=== PATIENT | female | born 1960 | race Caucasian/White ===

== ENCOUNTER 2018-04-19 14:53 | Emergency (ER) | payer SELFPAY ==
--- NOTE | 2018-04-19 15:17 | ED Physician Documentation ---
General Adult - HISTORIAN Historian: patient - HPI Stated Complaint: Shortness of Breath Chief Complaint: Dyspnea Onset: days ago (1) Timing: still present Severity: mild Further Comments: yes (She reports she sees pulmonology and she has a civil engineering assistant - she is not sure of their names. She states over the last day or so she has had increasing shortness of breath. No fever. no increased cough, no exposures to sick. She has tried her neb at home with minimal relief. She does not use a daily steroid inhaler. No rash) - ROS CONST: no problems - PAST HX Past History: COPD, hypertension Immunizations: UTD Allergies/Adverse Reactions: Allergies Allergy/AdvReac Type Severity Reaction Status Date / Time morphine AdvReac Intermediate Nausea/Vomi Verified 04/19/18 15:17 ting Home Medications: Ambulatory Orders Medication Instructions Recorded Ipratropium/Albuterol Sulfate 3 ml NEB Q4 07/25/16 [Duoneb] - SOCIAL HX Smoking History: cigarettes Alcohol Use: none Drug Use: none - FAMILY HX Family History: No - VITAL SIGNS Vital Signs: Vital Signs Temp Pulse Resp BP Pulse Ox 98.1 F 89 28 H 100/66 88 L 04/19/18 14:55 04/19/18 14:55 04/19/18 14:55 04/19/18 14:55 04/19/18 14:55 - REVIEWED ASSESSMENTS Nursing Assessment Reviewed: Yes Vitals Reviewed: Yes Progress - Progress Progress: 1600: she reports she is still "a little" short on air. She does report she is feeling better. DG 1650: She reports she would rather have an oral steroid not IV. She states the duoneb makes her feel far more less short of breath. DG ED Results Lab/Radiology - Radiology Radiology Impressions: Dairy Worker to anterior and lateral chest Clinical history: Short of breath Technique: Pa and lateral standing upright radiographs Findings: The lung savage are hyperinflated with flattening of the hemidiaphragms. There is no mass infiltrate or pleural effusions. Thoracic spondylosis is present. Aortic arch calcification is present Impression: Hyperinflation No acute infiltrate Electronically signed on Apr 19, 2018 3:54:46 PM CDT by: Oleg Murray General Adult Physical Exam - PHYSICAL EXAM GENERAL APPEARANCE: no distress EENT: eye inspection normal, ENT inspection normal, pharynx normal, no signs of dehydration NECK: normal inspection, thyroid normal RESPIRATORY: no resp distress, chest non-tender, wheezes (expiratory mild upper right ) CVS: reg rate & rhythm, heart sounds normal, equal pulses, no murmur ABDOMEN: soft, normal bowel sounds, no distension, non-tender BACK: normal inspection SKIN: warm/dry EXTREMITIES: non-tender NEURO: oriented X3, CN's nml as tested, motor nml, sensation nml, mood/affect nml, cognition normal Discharge Clincal Impression: COPD (chronic obstructive pulmonary disease) Qualifiers: COPD type: unspecified COPD Qualified Code(s): J44.9 - Chronic obstructive pulmonary disease, unspecified Referrals: Rufus Arrington MD [Primary Care Provider] - 2 Days Comments: 1. Medrol Dose pack - as directed 2. Watch sugar intake 3. Wear oxygen as needed 4. Duo neb treatments every 6 hours as needed for shortness of air 5. See PCP in 2-4 days 6. Return to ER for any concerns Condition: Stable Disposition: 01 HOME, SELF-CARE Decision to Admit: NO Date of Decison to Admit: 04/19/18 Decision Time: 16:59
[2018-04-19 15:36] LABS: BASOPHILS % 0.3 (0.0-1.5); EOSINOPHILS % 3.6 % (0.0-6.8); MEAN CORPUSCULAR HEMOGLOBIN 30.7 pg (28.0-34.0); MEAN CORPUSCULAR VOLUME 91.8 fl (80.0-100.0); MONOCYTES % 3.2 % (0.0-11.0); NEUTROPHILS # 5.6 # k/uL (1.4-7.7)
[2018-04-19] MEDS ORDERED: IPRATROPIUM/ALBUTEROL SULFATE 3 ML AMPUL.NEB NEB ONE (15:39)
[2018-04-19 15:52] LABS: eGFR (African) > 60; eGFR (Non-African) > 60
--- NOTE | 2018-04-19 16:47 | Diagnostic Imaging Report ---
OLEG BANEGAS [facility] [address] [facility] [address] [place], [place]. [address] Report Submission Date: Apr 19, 2018 3:54:46 PM CDT Patient Study Name: KATALINA HAIR Date: Apr 19, 2018 3:35:42 PM CDT Modality Type: DX Gender: F Description: CHEST : 62 Institution: [facility] Physician: OLEG BANEGAS Life Agent to anterior and lateral chest Clinical history: Short of breath Technique: Pa and lateral standing upright radiographs Findings: The lung savage are hyperinflated with flattening of the hemidiaphragms. There is no mass infiltrate or pleural effusions. Thoracic spondylosis is present. Aortic arch calcification is present Impression: Hyperinflation No acute infiltrate Electronically signed on Apr 19, 2018 3:54:46 PM CDT by: Oleg MARINA
[2018-04-19 17:09] VITALS: BP 101/67
[2018-04-22 07:29] LABS: ABG BASE EXCESS 8.2 (-2 - +2); ABG PH 7.38 (7.35-7.45)
== END 2018-04-19 17:08 | disposition home or self-care (01) ==
LOC: ED 14:53
DX: J44.9 Chronic obstructive pulmonary disease, unspecified (principal)
CPT/HCPCS: 36600; 71046; 80053; 82803; 83880; 84484; 85025; 85379; 94640; 99284; S1016

== ENCOUNTER 2018-08-22 18:03 | Emergency (ER) | payer SELFPAY ==
[2018-08-22] MEDS ORDERED: ASPIRIN 81 MG CHEW TAB PO ONE (18:17)
--- NOTE | 2018-08-22 18:35 | ED Physician Documentation ---
Chest Pain - HISTORIAN Historian: patient - HPI Stated Complaint: chest pressure Chief Complaint: Chest Pain Additional Information: Patient, with past medical history of CAD (s/p RCA stent December 2018 on Plavix/ASA), DM2, Oxygen dependent COPD and cigarette smoking, presents to ED with a chest pressure which started approximately 45 minutes ago. She took a nitro with no relief. Patient reports some dizziness while in the car to the ED. Once in ED her chest pressure resolved without intervention. She states she has been taking her medications a prescribed including Plavix and ASA. She smokes about a pack a day. She wears 3 liters oxygen at home. Onset: hours (1) Timing: gradual onset, gone now Last known Well Date: 08/22/18 Last Known Well Time: 08:00 Context: other (eating) Severity: moderate Quality: pressure Chest Pain Radiation: no radiation Chest Pain Signs/Symptoms: dizziness, weakness. denies: nausea, vomiting Worsened By: nothing Relieved By: other (resolved without intervention) - ROS CONST: none MS/LYMPH: denies: calf pain, ankle swelling GI/: denies: vomiting, nausea EYES/ENT: none SKIN/ENDO: denies: rash NEURO/PSYCH: denies: headache - PAST HX [place] risk factors: AMI (December 2017) DVT/PE Risk Factors: denies: leg swelling, prior DVT, prior PE TAD/AAA risk factors: none Neuro deficit: none GI disease: none Lung disease: COPD (Oxygen dependent) Surgeries/Procedures: cardiac stent (Mid RCA) Allergies/Adverse Reactions: Allergies Allergy/AdvReac Type Severity Reaction Status Date / Time morphine AdvReac Intermediate Nausea/Vomi Verified 08/22/18 19:21 ting morphine AdvReac Intermediate Nausea/Vomi Uncoded 08/21/12 16:28 ting Home Medications: Ambulatory Orders Medication Instructions Recorded Ipratropium/Albuterol Sulfate 3 ml NEB Q4 07/25/16 [Duoneb] Aspirin [Adult Low Dose Aspirin EC] 08/22/18 Atorvastatin Calcium [Lipitor] PO DAILY 08/22/18 Azithromycin 500 mg PO DAILY #5 tablet 08/22/18 Clopidogrel Bisulfate [Clopidogrel] DAILY 08/22/18 Lisinopril [Zestril] 08/22/18 Metformin HCl 08/22/18 Pantoprazole Sodium [Protonix] 01/04/19 predniSONE [Deltasone] 10 mg PO DAILY #20 tablet 08/22/18 - SOCIAL HX Smoking History: cigarettes, greater than 1 pack/day Alcohol Use: none Drug Use: none - FAMILY HX Family HX: CAD under 55 - VITAL SIGNS Vital Signs: Vital Signs Temp Pulse Resp BP Pulse Ox 101/67 04/19/18 17:08 - REVIEWED ASSESSMENTS Nursing Assessment Reviewed: Yes Vitals Reviewed: Yes Progress - Results/Orders Results/Orders: 1951 Patient is feeling better. She reports she has not followed up with her Engineer Exhauster at all. She also states she has had a cough for 2 weeks. Patient reports the people she lives with smokes marijuana and it make her cough. - EKG/XRAY/CT Comments: Sinus tachycardia 108 bpm frequent PVCs ED Results Lab/Radiology - Radiology Radiology Impressions: Chest, 1 view History: Aggravated COPD Findings: Comparison is made to exam dated 04/19/2018. The heart size is normal. The lungs are hyperinflated. The lungs are clear. There is no pleural effusion or pneumothorax identified. The osseous structures are normal. Impression: 1. No acute pulmonary disease. 2. Lung hyperinflation. Electronically signed on Aug 22, 2018 6:50:34 PM WELDER/FABRICATOR by: Chevy Dunne - Orders Orders: ED Orders Category Date Time Status Place IV Lock 1T Care 08/22/18 18:09 Active CHEST 1VIEW [RAD] Stat Exams 08/22/18 Ordered CBC/PLATELET/DIFF Routine Lab 08/22/18 Ordered CMP Routine Lab 08/22/18 Ordered NT-proBNP Stat Lab 08/22/18 Ordered TROPONIN I (cTnI) Stat Lab 08/22/18 Ordered Aspirin Med 08/22/18 18:17 Discontinued 324 mg PO NOW ONE Oxygen Daily Oxygen 08/22/18 18:30 Ordered EKG WITH COMPARISON Stat Ther 08/22/18 Ordered Chest Pain Physical Exam - EXAM General Appearance: no acute distress, alert EENT: CLYDE Neck: No: lymphadenopathy Respiratory: no resp. distress, other (markedly diminished breath sounds bilaterally) CVS: reg. rate & rhythm, no murmur Abdomen: soft, normal bowel sounds Skin: warm/dry Extremities: non-tender, no edema Neuro: oriented X3 Discharge Clincal Impression: COPD with acute exacerbation Prescriptions: Azithromycin 500 mg PO DAILY #5 tablet predniSONE [Deltasone] 10 mg PO DAILY #20 tablet Referrals: Rufus Arrington MD [Primary Care Provider] - 2 Days Additional Instructions: 1. Take Prednisone and Antibiotics as directed 2. Avoid contact with second hand marijuana smoke 3. Smoking cessation is strongly recommended. 4. Follow up with Cardiology as soon as possible. 5. [facility] does not have a Engineer Exhauster at this time 6. Return to the ER with new or worsening symptoms. Condition: Stable Disposition: 01 HOME, SELF-CARE Decision to Admit: NO Date of Decison to Admit: 08/22/18 Decision Time: 19:56
[2018-08-22 18:44] LABS: BASOPHILS % 0.7 (0.0-1.5); EOSINOPHILS % 2.4 % (0.0-6.8); MEAN CORPUSCULAR HEMOGLOBIN 29.9 pg (28.0-34.0); MONOCYTES % 7.6 % (0.0-11.0); NEUTROPHILS # 7.2 # k/uL (1.4-7.7)
--- NOTE | 2018-08-22 19:07 | Diagnostic Imaging Report ---
ANGELA RAVI [facility] [address] [facility] [address] [place] [address]. [id number] Report Submission Date: Aug 22, 2018 6:50:34 PM ORDERLY Patient Study Name: KATALINA HAIR Date: Aug 22, 2018 6:24:16 PM ORDERLY Modality Type: DX Gender: F Description: CHEST : 62 Institution: [facility] Physician: ANGELA RAVI Chest, 1 view History: Aggravated COPD Findings: Comparison is made to exam dated 04/19/2018. The heart size is normal. The lungs are hyperinflated. The lungs are clear. There is no pleural effusion or pneumothorax identified. The osseous structures are normal. Impression: 1. No acute pulmonary disease. 2. Lung hyperinflation. Electronically signed on Aug 22, 2018 6:50:34 PM ORDERLY by: Chevy MARINA
[2018-08-22 19:08] LABS: eGFR (Non-African) > 60
[2018-08-22] MEDS ORDERED: methylPREDNISolone SOD SUCC 125 MG/2 ML VIAL IVP ONE (19:35)
[2018-08-22] MEDS ORDERED: IPRATROPIUM/ALBUTEROL SULFATE 3 ML AMPUL.NEB NEB ONE (19:50)
[2018-08-22] MEDS ORDERED: AZITHROMYCIN 250 MG TABLET PO ONE (19:50)
[2018-08-22 21:10] VITALS: BP 107/68
== END 2018-08-22 20:37 | disposition home or self-care (01) ==
LOC: ED 18:03
DX: J44.1 Chronic obstructive pulmonary disease with (acute) exacerbation (principal); Z72.0 Tobacco use; Z99.81 Dependence on supplemental oxygen
CPT/HCPCS: 71045; 80053; 83880; 84484; 85025; 93005; 94640; 96374; 99283; 99285; J2930; S1016

== ENCOUNTER 2019-02-02 20:43 | Emergency (ER) | payer OTHER ==
[2019-02-10 19:28] LABS: eGFR (Non-African) > 60
[2019-02-10 19:29] LABS: BASOPHILS % 0.5 % (0.0-1.5); NEUTROPHILS # 3.8 # k/uL (1.4-7.7)
== END 2019-02-02 22:45 ==
LOC: ED 20:43
DX: E11.65 Type 2 diabetes mellitus with hyperglycemia (principal); Z91.19 Patient's noncompliance with other medical treatment and regimen
CPT/HCPCS: 36415; 80053; 84484; 85025; 99282; 99283; S1016

== ENCOUNTER 2019-02-19 19:07 | Emergency (ER) | payer OTHER ==
--- NOTE | 2019-02-19 19:27 | ED Physician Documentation ---
General Adult - HISTORIAN Historian: patient - HPI Stated Complaint: dysuria Chief Complaint: General Adult Timing: still present Severity: moderate Further Comments: yes (Pt is a 58 yo female with c/o dysuria that began 4 days ago. Pt has had occasional nausea. No fever. No back pain.) - ROS CONST: no problems EYES/ENT: none CVS/RESP: none GI/: problems urinating, nausea MS/SKIN/LYMPH: none - PAST HX Past History: other (CAD, stents, DM, GERD.) Allergies/Adverse Reactions: Allergies Allergy/AdvReac Type Severity Reaction Status Date / Time morphine AdvReac Intermediate Nausea/Vomi Verified 02/19/19 19:29 ting morphine AdvReac Intermediate Nausea/Vomi Uncoded 02/19/19 19:29 ting Home Medications: Ambulatory Orders Medication Instructions Recorded Aspirin [Adult Low Dose Aspirin EC] 81 mg PO D 08/22/18 Pantoprazole Sodium [Protonix] 40 mg PO D 08/22/18 - SOCIAL HX Smoking History: cigarettes - FAMILY HX Family History: No - VITAL SIGNS Vital Signs: Vital Signs Temp Pulse Resp BP Pulse Ox 107/68 08/22/18 21:07 - REVIEWED ASSESSMENTS Nursing Assessment Reviewed: Yes Vitals Reviewed: Yes Progress - Progress Progress: Rocephin 1 gm IM in ER Rx Cipro 500 mg po bid x 5 days, 1st dose in ER. General Adult Physical Exam - PHYSICAL EXAM GENERAL APPEARANCE: mild distress EENT: pharynx normal NECK: normal inspection, supple RESPIRATORY: no resp distress, chest non-tender, breath sounds normal CVS: reg rate & rhythm, heart sounds normal ABDOMEN: soft, no organomegaly, normal bowel sounds BACK: normal inspection, no CVA tenderness SKIN: warm/dry, normal color EXTREMITIES: non-tender, normal range of motion, no evidence of injury NEURO: oriented X3, motor nml, sensation nml Discharge Clincal Impression: UTI (urinary tract infection) Qualifiers: Urinary tract infection type: site unspecified Hematuria presence: without hematuria Qualified Code(s): N39.0 - Urinary tract infection, site not specified Referrals: Rufus Arrington MD [Primary Care Provider] - Condition: Good Disposition: 01 HOME, SELF-CARE Decision to Admit: NO Decision Time: 19:41
[2019-02-19 19:29] VITALS: BP 129/55
[2019-02-19] MEDS ORDERED: cefTRIAXone SODIUM 1 GM in Lidocaine 1% 5ml 2.1 ML IM ONE (19:30)
[2019-02-19] MEDS ORDERED: Lidocaine 1% 5ml 10 MG/ML VIAL IJ ONE (19:30)
[2019-02-19] MEDS ORDERED: CIPROFLOXACIN HCL 500 MG TABLET PO ONE (19:36)
== END 2019-02-19 20:27 | disposition home or self-care (01) ==
LOC: ED 19:07
DX: N39.0 Urinary tract infection, site not specified (principal)
CPT/HCPCS: 96372; 99283; 99284; J0696

== ENCOUNTER 2019-04-17 11:40 | Emergency (ER) | payer OTHER ==
--- NOTE | 2019-04-17 11:57 | ED Physician Documentation ---
Female Urogenital Problems - HISTORIAN Historian: patient - HPI Stated Complaint: UTI symptom Chief Complaint: Female Urogenital Problems Additional Information: Patient presents to ED with dysuria since yesterday afternoon. Denies fever, chills, nausea or vomiting. Onset: hours (16) Severity: moderate - Associated Symptoms Urinary Symptoms: frequent urination, pain w/ urination - ROS CONST: none GI/: denies: nausea, vomiting CVS/RESP: denies: chest pain, shortness of breath EYES/ENT: none NEURO/PSYCH: denies: headache MS/SKIN/LYMPH: none - PAST HX Past History: none Other History: none Surgeries/Procedures: none Allergies/Adverse Reactions: Allergies Allergy/AdvReac Type Severity Reaction Status Date / Time morphine AdvReac Intermediate Nausea/Vomi Uncoded 04/17/19 11:50 ting Home Medications: Ambulatory Orders Medication Instructions Recorded Aspirin [Adult Low Dose Aspirin EC] 81 mg PO D 08/22/18 Pantoprazole Sodium [Protonix] 40 mg PO D 08/22/18 Ciprofloxacin HCl [Cipro] 500 mg PO BID #10 tablet 04/17/19 - SOCIAL HX Smoking History: cigarettes, greater than 1 pack/day Alcohol Use: none Drug Use: none - FAMILY HX Family History: none - VITAL SIGNS Vital Signs: Vital Signs Temp Pulse Resp BP Pulse Ox 97.2 F L 76 19 149/78 92 04/17/19 11:46 04/17/19 11:46 04/17/19 11:46 04/17/19 11:46 04/17/19 11:46 - REVIEWED ASSESSMENTS Nursing Assessment Reviewed: Yes Vitals Reviewed: Yes Female Urogenital Problems - EXAM General Appearance: no acute distress, alert EENT: CLYDE Neck: nml inspection Respiratory: no resp. distress, breath sounds nml CVS: reg rate & rhythm, heart sounds normal Abdomen: soft, non-tender, no distention, nml bowel sounds Back: non-tender, painless ROM Skin: color nml, no rash Extremities: non-tender Neuro: oriented X3 Discharge Clincal Impression: UTI (urinary tract infection) Qualifiers: Urinary tract infection type: acute cystitis Hematuria presence: without hematuria Qualified Code(s): N30.00 - Acute cystitis without hematuria Prescriptions: Ciprofloxacin HCl [Cipro] 500 mg PO BID #10 tablet Referrals: Rufus Arrington MD [Primary Care Provider] - 2 Days Additional Instructions: 1. Take antibiotic until gone 2. Tylenol as needed for pain 3. Goldenseal could be beneficial 4. Follow up with PCP within 1 week 5. Return to ER for new or worsening symptoms Condition: Stable Disposition: 01 HOME, SELF-CARE Decision to Admit: NO Date of Decison to Admit: 04/17/19 Decision Time: 12:02
[2019-04-17 12:19] LABS: COLOR,URINE ORANGE (YELLOW)
[2019-04-17 12:20] LABS: APPEARANCE,URINE CLEAR (CLEAR); OCCULT BLOOD,URINE 2+ (NEGATIVE)
[2019-04-17 12:23] VITALS: BP 121/89
== END 2019-04-17 12:07 | disposition home or self-care (01) ==
LOC: ED 11:40
DX: N30.00 Acute cystitis without hematuria (principal)
CPT/HCPCS: 81002; 87086

== ENCOUNTER 2019-06-01 17:47 | Emergency (ER) | payer OTHER ==
--- NOTE | 2019-06-01 18:21 | ED Physician Documentation ---
Skin Rash - HISTORIAN Historian: patient - HPI Stated Complaint: rash Chief Complaint: Skin Rash Onset: days ago (unsure of start date.) Timing: worse Location: LUE (axilla area) Further Comments: yes (58 year old female patient presents with complaints of psorasis and itching to left axilla area. States she is using moisturizer. Has not seen PCP for symptoms.) - ROS CONST: none CVS/RESP: none EYES/ENT: none GI/: none MS/SKIN/LYMPH: none NEURO/PSYCH: none - PAST HX Past History: other (psoriasis, GERD) Allergies/Adverse Reactions: Allergies Allergy/AdvReac Type Severity Reaction Status Date / Time morphine AdvReac Intermediate Nausea/Vomi Uncoded 04/17/19 11:50 ting Home Medications: Ambulatory Orders Medication Instructions Recorded Aspirin [Adult Low Dose Aspirin EC] 81 mg PO D 08/22/18 Pantoprazole Sodium [Protonix] 40 mg PO D 08/22/18 Ciprofloxacin HCl [Cipro] 500 mg PO BID #10 tablet 04/17/19 - SOCIAL HX Smoking History: cigarettes - FAMILY HX Family History: none - VITAL SIGNS Vital Signs: Vital Signs Temp Pulse Resp BP Pulse Ox 97.5 F L 72 22 149/78 88 L 06/01/19 18:34 06/01/19 18:34 06/01/19 18:34 06/01/19 18:34 06/01/19 18:34 - REVIEWED ASSESSMENTS Nursing Assessment Reviewed: Yes Vitals Reviewed: Yes Skin Rash Physical Exam - EXAM General Appearance: mild distress Skin: warm,dry, skin rash, plaque Location: generalized, face, extremities Character: patchy Symptoms: crusting, rough texture, sand paper like Extremities: no edema EENT: eyes nml inspection Respiratory: no resp distress CVS: reg. rate & rhythm Neuro/Psych: oriented x3, motor nml, sensation nml, mood/affect nml Discharge Clincal Impression: Psoriasis Cellulitis Qualifiers: Site of cellulitis: extremity Site of cellulitis of extremity: axilla Laterality: left Qualified Code(s): L03.112 - Cellulitis of left axilla Referrals: Rufus Arrington MD [Primary Care Provider] - 2 Days Additional Instructions: Moisturize 5-7 times a day - all skin. Use vaseline, lubiderm or aquafor uplands division director your antibiotic cream and use it twice a day on the area under your left arm. Make a follow up appointment with your primary care doctor for re-evaluation if you symptoms do not improve. Condition: Stable Disposition: 01 HOME, SELF-CARE Decision to Admit: NO Decision Time: 18:21
== END 2019-06-01 18:34 | disposition home or self-care (01) ==
LOC: ED 17:47
DX: L40.9 Psoriasis, unspecified (principal); L03.112 Cellulitis of left axilla
CPT/HCPCS: 99281; 99282

== ENCOUNTER 2019-06-08 17:42 | Emergency (ER) | payer OTHER ==
--- NOTE | 2019-06-08 18:25 | ED Physician Documentation ---
Skin Rash - HISTORIAN Historian: patient - HPI Stated Complaint: itching rash x 10 days Chief Complaint: Skin Rash Additional Information: Patient presents to ED with itchy skin rash x 10 days. She states it started on both elbows and has moved to mainly her torso. The itching is worse at night and she can't sleep. Onset: days ago (10) Timing: still present Duration: persistent since Location: trunk, RUE, LUE Quality: itchy Identified Cause?: No Where: home - ROS CONST: none CVS/RESP: none EYES/ENT: none GI/: none MS/SKIN/LYMPH: none NEURO/PSYCH: none - PAST HX Past History: none Other History: none Surgeries/Procedures: No Allergies/Adverse Reactions: Allergies Allergy/AdvReac Type Severity Reaction Status Date / Time morphine AdvReac Intermediate Nausea/Vomi Uncoded 04/17/19 11:50 ting Home Medications: Ambulatory Orders Medication Instructions Recorded Aspirin [Adult Low Dose Aspirin EC] 81 mg PO D 08/22/18 Pantoprazole Sodium [Protonix] 40 mg PO D 08/22/18 Ciprofloxacin HCl [Cipro] 500 mg PO BID #10 tablet 04/17/19 Permethrin [Elimite] 60 gm TP ONCE #1 cream..g. 06/08/19 - SOCIAL HX Smoking History: non-smoker Alcohol Use: none Drug Use: none - FAMILY HX Family History: none - VITAL SIGNS Vital Signs: Vital Signs Temp Pulse Resp BP Pulse Ox 149/78 06/01/19 18:34 - REVIEWED ASSESSMENTS Nursing Assessment Reviewed: Yes Vitals Reviewed: Yes Skin Rash Physical Exam - EXAM General Appearance: no acute distress, alert Skin: warm,dry Location: trunk, extremities (bilateral arms) Character: linear Symptoms: scaling Extremities: non-tender, nml ROM EENT: eyes nml inspection Neck: trachea midline Respiratory: no resp distress CVS: reg. rate & rhythm, heart sounds nml Abdomen: non-tender, nml bowel sounds Neuro/Psych: oriented x3, mood/affect nml Discharge Clincal Impression: Scabies Prescriptions: Permethrin [Elimite] 60 gm TP ONCE #1 cream..g. Referrals: Rufus Arrington MD [Primary Care Provider] - 2 Days Additional Instructions: 1. Start Medrol dose pack today. This will help with itch tremendously. 2. Apply Elimite tonight. Leave on 12 hours. Repeat every 7 days up to 3 times as needed 3. Wash all bedding. Treat all mattresses and cloth furniture with over the counter spray 4. Dry bedding on high heat for 1 hour 5. Follow up with PCP within 1 week 6. Return to ER for new or worsening symptoms Condition: Stable Disposition: 01 HOME, SELF-CARE Decision to Admit: NO Date of Decison to Admit: 06/08/19 Decision Time: 18:29
[2019-06-08 18:37] VITALS: BP 148/78
== END 2019-06-08 18:40 | disposition home or self-care (01) ==
LOC: ED 17:42
DX: B86 Scabies (principal)
CPT/HCPCS: 99283; 99284

== ENCOUNTER 2019-06-21 17:02 | Emergency (ER) | payer OTHER ==
[2019-06-21 17:15] VITALS: BP 136/76
--- NOTE | 2019-06-21 17:19 | ED Physician Documentation ---
General Adult - HISTORIAN Historian: patient - HPI Stated Complaint: rash Chief Complaint: General Adult Onset: days ago (2 weeks) Timing: still present Severity: moderate Further Comments: yes (Pt is a 58 yo female with was seen at this facility 06-08-19 and dx'd with scabies. Pt was tx'd with permethrin and repeated tx after 7 days. Pt complains of continued itching. Pt was rx'd a medrol dose pack which was very helpful for itch, pt says.) - ROS CONST: no problems EYES/ENT: none CVS/RESP: none GI/: none MS/SKIN/LYMPH: other (pruritic rash) - PAST HX Past History: other (COPD, DM, HTN.) Allergies/Adverse Reactions: Allergies Allergy/AdvReac Type Severity Reaction Status Date / Time morphine AdvReac Intermediate Nausea/Vomi Uncoded 06/21/19 17:12 ting Home Medications: Ambulatory Orders Medication Instructions Recorded Aspirin [Adult Low Dose Aspirin EC] 81 mg PO D 08/22/18 Pantoprazole Sodium [Protonix] 40 mg PO D 08/22/18 CiproFLOXacin HCL [Cipro] 500 mg PO BID #10 tablet 04/17/19 Permethrin [Elimite] 60 gm TP ONCE #1 cream..g. 06/08/19 - SOCIAL HX Smoking History: cigarettes - FAMILY HX Family History: No - VITAL SIGNS Vital Signs: Vital Signs Temp Pulse Resp BP Pulse Ox 98.0 F 87 19 136/76 94 06/21/19 17:13 06/21/19 17:13 06/21/19 17:13 06/21/19 17:13 06/21/19 17:13 - REVIEWED ASSESSMENTS Nursing Assessment Reviewed: Yes Vitals Reviewed: Yes Progress - Progress Progress: Pt advisted that itching will continue for a time even after it is effectively treated. Will rx continue steroid taper. d/c instructions: Rx Prednisone 10 mg. Take 4 tablets at the same time once daily for 3 days; then take 3 tablets once daily for 3 days; then take 2 tablets once daily for 3 days; then take 1 tablet each day for 3 days; then stop. May also take Benadryl as directed. General Adult Physical Exam - PHYSICAL EXAM GENERAL APPEARANCE: mild distress EENT: pharynx normal NECK: normal inspection, supple RESPIRATORY: no resp distress, chest non-tender, breath sounds normal CVS: reg rate & rhythm, heart sounds normal ABDOMEN: soft BACK: normal inspection, no CVA tenderness SKIN: other (Healing rash on chest and upper extremities, c/w resolving scabies; some excoriation) EXTREMITIES: non-tender, normal range of motion, no evidence of injury NEURO: oriented X3, motor nml, sensation nml Discharge Clincal Impression: resolving scabies Referrals: Rufus Arrington MD [Primary Care Provider] - Condition: Good Disposition: 01 HOME, SELF-CARE Decision to Admit: NO Decision Time: 17:45
== END 2019-06-21 17:45 | disposition home or self-care (01) ==
LOC: ED 17:02
DX: B86 Scabies (principal)
CPT/HCPCS: 99283; 99284

== ENCOUNTER 2019-07-26 14:38 | Emergency (ER) | payer OTHER ==
--- NOTE | 2019-07-26 15:04 | ED Physician Documentation ---
Female Urogenital Problems - HISTORIAN Historian: patient - HPI Chief Complaint: Female Urogenital Problems Additional Information: 58 year old presents with c/o dysuria, burning, and frequency that started 2 weeks ago. She has a history of UTI's. Denies any f/c/n/v/d. Onset: days ago Severity: mild Location of Pain: denies: abdominal pain, low back pain - Associated Symptoms Urinary Symptoms: frequent urination, discomfort w/ urination, burning w/ urination, urgency w/ urination Discharge: denies: vaginal discharge - ROS CONST: none GI/: denies: nausea, vomiting CVS/RESP: none EYES/ENT: none NEURO/PSYCH: none MS/SKIN/LYMPH: none - PAST HX Past History: other (UTIs) Other History: bladder infection, diabetes Type 2, hypertension, other (COPD) Immunizations: UTD Allergies/Adverse Reactions: Allergies Allergy/AdvReac Type Severity Reaction Status Date / Time morphine AdvReac Intermediate Nausea/Vomi Uncoded 07/26/19 15:04 ting Home Medications: Ambulatory Orders Medication Instructions Recorded Aspirin [Adult Low Dose Aspirin EC] 81 mg PO D 08/22/18 Pantoprazole Sodium [Protonix] 40 mg PO D 08/22/18 CiproFLOXacin HCL [Cipro] 500 mg PO BID #10 tablet 04/17/19 Permethrin [Elimite] 60 gm TP ONCE #1 cream..g. 06/08/19 CiproFLOXacin HCL [Cipro] 500 mg PO BID #14 tablet 07/26/19 - SOCIAL HX Smoking History: greater than 1 pack/day Alcohol Use: none Drug Use: none - FAMILY HX Family History: none - VITAL SIGNS Vital Signs: Vital Signs Temp Pulse Resp BP Pulse Ox 136/76 06/21/19 17:44 - REVIEWED ASSESSMENTS Nursing Assessment Reviewed: Yes Vitals Reviewed: Yes ED Results Lab/Radiology - Orders Orders: ED Orders Category Date Time Status URINALYSIS Routine Lab 07/26/19 14:55 Ordered URINE CULTURE Stat Lab 07/26/19 14:56 Ordered Female Urogenital Problems - EXAM General Appearance: no acute distress EENT: eye inspection normal, ENT inspection normal, pharynx normal, no signs of dehydration Neck: nml inspection Respiratory: breath sounds nml CVS: heart sounds normal Abdomen: soft, non-tender Skin: color nml, no rash, warm,dry Extremities: normal range of motion Neuro: oriented X3, motor nml, sensation nml, mood/affect nml, cognition normal Discharge Clincal Impression: UTI (urinary tract infection) Prescriptions: CiproFLOXacin HCL [Cipro] 500 mg PO BID #14 tablet Referrals: Rufus Arrington MD [Primary Care Provider] - 2 Days Additional Instructions: Increase water intake > 64 oz Take Cipro 500 mg by mouth twice a day for 7 days Monitor blood sugars closely; stop soda Follow up with PCP on urine culture Condition: Good Disposition: 01 HOME, SELF-CARE Decision to Admit: NO Decision Time: 15:38
[2019-07-26 15:09] VITALS: BP 121/89
[2019-07-27 06:03] LABS: APPEARANCE,URINE CLEAR (CLEAR); COLOR,URINE YELLOW (YELLOW); OCCULT BLOOD,URINE 1+ (NEGATIVE)
[2019-07-27 06:04] LABS: UROBILINOGEN URINE 0.2 Eu (0.2-1.0)
== END 2019-07-26 15:09 | disposition home or self-care (01) ==
LOC: ED 14:38
DX: N39.0 Urinary tract infection, site not specified (principal)
CPT/HCPCS: 81002; 87086; 99281; 99283